=== PATIENT | female | born 1935 | race Caucasian/White ===

== ENCOUNTER 2024-12-21 09:34 | Emergency (ER) | payer MEDICAID, OTHER ==
[~2024-12-21] VITALS: Ht 157.5 cm; Wt 59.0 kg
[2024-12-21 09:34] VITALS: BP 153/63; PULSE 63; RESP 18; TEMP 97.9; O2SAT 95
--- NOTE | 2024-12-21 11:58 | DVH ---
CLINICAL INDICATION: 89 years old, Female; Fall. TECHNIQUE: Noncontrast CT of the facial bones was performed. Sagittal and coronal reformatted images are provided. COMPARISON: None CT Dose: CTDI volume is 66.97 mGy. Dose-length product is 1196.21 mGy*cm FINDINGS: Evaluation is limited by patient's position. No evidence of acute facial bone fracture. Paranasal si nuses and mastoid air cells are clear. The soft tissues are grossly unremarkable. IMPRESSION: 1. No evidence of acute facial bone fracture. All CT scans at this medical facility are performed using dose modulation techniques as appropriate t o a performed exam including the following: Automated exposure control was utilized; adjustment of th e MA and/or KV according to patient size; and use of iterative reconstruction technique.
--- NOTE | 2024-12-21 12:00 | DVH ---
EXAM: CT HEAD WITHOUT CONTRAST INDICATION: Fall TECHNIQUE: CT of the head without intravenous contrast. Coronal and sagittal reformatted images are s ubmitted. Radiation Dose : 1. Head: CT Dose: CTDI volume is 65.4 mGy. Dose-length product is 1156.4 mGy*cm The dose indicators for CT are the volume Computed Tomography (CT) Dose Index (CTDIvol) and the Dose Length Product (DLP), and are measured in units of mGy and mGy-cm, respectively. These indicators are not patient dose, but values generated from the CT scanner acquisition factors. The report includes radiation exposure data for exposures received during this examination. All CT scans at this medical facility are performed using dose modulation techniques as appropriate to a performed exam including the following: Automated exposure control was utilized; adjustment of the MA and/or KV according to patient size; and use of iterative reconstruction technique. COMPARISON: None FINDINGS: Evaluation is limited by patient position. There is no evidence of acute intracranial hemorrhage, extra-axial collection, mass effect, midline s hift, herniation or hydrocephalus. Age-appropriate cortical volume loss. There are periventricular and subcortical hypodensities, nonspecific, but likely reflecting sequelae of chronic microvascular ischemic changes. The ventricles, sulci and cisterns are age appropriate. The estrada-white differentiation is intact. The visualized paranasal sinuses and mastoid air cells are clear. No depressed calvarial fracture. Right vertex scalp swelling. Subacute right clavicular fracture. IMPRESSION: 1. No evidence of acute intracranial abnormality. 2. Right scalp swelling at the vertex. 3. Subacute right clavicular fracture.
--- NOTE | 2024-12-21 12:02 | DVH ---
EXAM: CT CERVICAL WITHOUT CONTRAST INDICATION: Fall EXAM DATE: 12/21/2024 11:17 AM COMPARISON: None TECHNIQUE: Multiple axial CT images of the cervical spine were obtained using bone algorithm. Sagitta l and coronal reformatting was done. Bone and soft tissue windows were reviewed. Radiation Dose Information: CT Dose: CTDI volume is 17.74 mGy. Dose-length product is 433.49 mGy*cm FINDINGS: Evaluation is limited by patient position. The cervical alignment is intact. Levocurvature of the cervical spine. No acute cervical spine fractu re is identified. The vertebral body heights are intact. No suspicious osseous lesions are identified . Multilevel degenerative changes. No significant spinal stenosis. Multilevel cervical spondylosis. Right clavicular subacute fracture. There is no prevertebral soft tissue swelling. Lung apices are clear. Right shoulder joint effusion. IMPRESSION: 1. No evidence of acute cervical spine fracture or traumatic malalignment. 2. Degenerative changes in the cervical spine. All CT scans at this medical facility are performed using dose modulation techniques as appropriate t o a performed exam including the following: Automated exposure control was utilized; adjustment of th e MA and/or KV according to patient size; and use of iterative reconstruction technique.
[2024-12-21 12:19] LABS: Basophils # (auto) 0.1 10 ^3/uL (0-0.2); Basophils % (auto) 0.8 % (0.0-2.0); Eosinophils # (auto) 0 10 ^3/uL (0-0.8); Eosinophils % (auto) 0.6 % (0.0-7.0); Hematocrit 32.9 % (36.0-46.0); Hemoglobin 10.9 g/dL (12.2-16.2); Lymphocytes # (auto) 1.1 10 ^3/uL (0.4-5.4); Lymphocytes % (auto) 15.4 % (10.0-50.0); Mean Corpuscular Hemoglobin 30.6 pg (28.0-32.0); Mean Corpuscular Hgb Conc. 33.3 g/dL (32.0-36.0); Mean Corpuscular Volume 91.9 fL (80.0-100.0); Monocytes # (auto) 0.5 10 ^3/uL (0-1.3); Neutrophils # (auto) 5.2 10 ^3/uL (1.6-8.6); Neutrophils % (auto) 76.2 % (37.0-80.0); Platelet Count (auto) 269 10^3/uL (140-450); Red Blood Cells 3.58 10^6/uL (4.0-5.20); Red Cell Distribution Width 14.7 % (11.8-14.3); White Blood Cell 6.9 10^3/uL (4.4-10.8)
[2024-12-21 12:30] LABS: Potassium 4.4 mmol/L (3.5-5.1)
[2024-12-21 12:31] LABS: Anion Gap 7 (5-15); Calcium 9.7 mg/dL (8.7-10.4); Carbon Dioxide 27 mmol/L (20-31)
[2024-12-21 12:36] LABS: BUN/Creatinine Ratio 29.1 (10.0-20.0)
[2024-12-21 12:41] LABS: Blood Urea Nitrogen 25 mg/dL (9-23); Chloride 96 mmol/L (98-107); Glucose 124 mg/dL (74-106); Sodium 130 mmol/L (136-145)
[2024-12-21 12:44] LABS: INR 0.98 (0.9-1.15); Prothrombin Time 10.4 sec (9.3-11.8)
--- NOTE | 2024-12-21 13:17 | ED.PDOC ---
HPI Comments 89-year-old who is in hospice and has a history of dementia, epilepsy, pacemaker, osteoarthritis BIB ambulance for a unwitnessed mechanical fall after loosing her footing going to the restroom and sustained a 3 cm laceration to the right temporal region. Denies fever, chills, night sweats Denies persistent nausea Denies vomiting Denies thunderclap headache Denies photophobia, phonophobia Denies taking any blood thinner medication Denies vision/hearing changes Chief Complaint: Laceration Time Seen by MD: 09:58 Primary Care Provider: UNKNOWN Reviewed Notes: Nurses Notes, Medications, Allergies Allergies: Coded Allergies: Codeine (Verified Allergy, Severe, 12/21/24) Zolpidem (Verified Allergy, Severe, 12/21/24) Uncoded Allergies: ELIQUIS (Allergy, Severe, 12/21/24) Mode of Arrival: EMS Complexity: Intermediate Laceration Length (cm): 2 All Other Systems: Reviewed and Negative (per hpi) Physical Exam General Appearance: No Apparent Distress, Normal HEENT: Head (3 cm lac to right temporal area), Normal ENT Inspection, Pharynx Normal, TMs Normal Neck: Full Range of Motion, Non-Tender, Normal, Normal Inspection Respiratory: Chest Non-Tender, Lungs Clear, No Accessory Muscle Use, No Respiratory Distress, Normal Breath Sounds Cardiovascular: No Edema, No JVD, No Murmur, No Gallop, Normal Peripheral Pulses, Regular Rate/Rhythm Breast Exam: Deferred Gastrointestinal: No Organomegaly, Non Tender, No Pulsatile Mass, Normal Bowel Sounds, Soft Genitalia: Deferred Pelvic: Deferred Rectal: Deferred Extremities: No calf tenderness, Normal capillary refill, Normal inspection, Normal range of motion, Non-tender, No pedal edema Musculoskeletal : Apperance: Normal Neurologic: Alert, marketing systems manager II-XII nml as Tested, No Motor Deficits, Normal Affect, Normal Mood, No Sensory Deficits Cerebellar Function: Normal Reflexes: Normal Skin: Dry, Normal Color, Warm Lymphatic: No Adenopathy Was a procedure done? Was a procedure done?: Yes Sedation Sedation?: No Laceration Repair : Location right voodoo Length 3 Laceration Repair Prep: Saline, Betadine Laceration Repair Wound Comple: epidermis/dermis repair Laceration Repair: [place] (2) Differential diagnosis Generic Laceration: Hematoma, Fracture Differential Diagnosis: Closed Head Injury, Skull Fracture X-Ray, Labs, Meds, VS Vital Signs Date Time Temp Pulse Resp B/P (MAP) Pulse Ox O2 Delivery O2 Flow Rate FiO2 12/21/24 09:57 Room Air* 0 21 12/21/24 09:34 63 18 12/21/24 09:34 97.9 63 18 153/63 (93) 95 12/21/24 09:34 97.9 63 18 153/63 (93) 95 97.9 Lab Test 12/21/24 11:35 Range/Units White Blood Count 6.9 4.4-10.8 10^3/uL Red Blood Count 3.58 L 4.0-5.20 10^6/uL Hemoglobin 10.9 L 12.2-16.2 g/dL Hematocrit 32.9 L 36.0-46.0 % Mean Corpuscular Volume 91.9 80.0-100.0 fL Mean Corpuscular Hemoglobin 30.6 28.0-32.0 pg Mean Corpuscular Hemoglobin Concent 33.3 32.0-36.0 g/dL Red Cell Distribution Width 14.7 H 11.8-14.3 % Platelet Count 269 140-450 10^3/uL Mean Platelet Volume 7.7 6.9-10.8 fL Neutrophils (%) (Auto) 76.2 37.0-80.0 % Lymphocytes (%) (Auto) 15.4 10.0-50.0 % Monocytes (%) (Auto) 7.0 0.0-12.0 % Eosinophils (%) (Auto) 0.6 0.0-7.0 % Basophils (%) (Auto) 0.8 0.0-2.0 % Neutrophils # (Auto) 5.2 1.6-8.6 10 ^3/uL Lymphocytes # (Auto) 1.1 0.4-5.4 10 ^3/uL Monocytes # (Auto) 0.5 0-1.3 10 ^3/uL Eosinophils # (Auto) 0 0-0.8 10 ^3/uL Basophils # (Auto) 0.1 0-0.2 10 ^3/uL Nucleated Red Blood Cells 0.0 % Prothrombin Time 10.4 9.3-11.8 sec Prothrombin Time INR 0.98 0.9-1.15 Sodium Level 130 L 136-145 mmol/L Potassium Level 4.4 3.5-5.1 mmol/L Chloride Level 96 L 98-107 mmol/L Carbon Dioxide Level 27 20-31 mmol/L Anion Gap 7 5-15 Blood Urea Nitrogen 25 H 9-23 mg/dL Creatinine 0.86 0.550-1.02 mg/dL Glomerular Filtration Rate Calc 65 >90 mL/min BUN/Creatinine Ratio 29.1 H 10.0-20.0 Serum Glucose 124 H 74-106 mg/dL Calcium Level 9.7 8.7-10.4 mg/dL PATIENT: MAK VAZQUEZT: [id number]: [id number] : 1935 LOC: ER ROOM / BED: / AGE / SEX: 89 / F ADM STATUS: REG ER SERVICE 1102 ORDERING PHYSICIAN: TONYA YAN NP PROCEDURE(s): HWOCT - HEAD WITHOUT CONTRAST REASON: Fall ORDER NUMBER(s): [id number], ACCESSION NUMBER(s): [id number] EXAM: CT HEAD WITHOUT CONTRAST INDICATION: Fall TECHNIQUE: CT of the head without intravenous contrast. Coronal and sagittal reformatted images are submitted. Radiation Dose : 1. Head: CT Dose: CTDI volume is 65.4 mGy. Dose-length product is 1156.4 mGy*cm The dose indicators for CT are the volume Computed Tomography (CT) Dose Index (C TDIvol) and the Dose Length Product (DLP), and are measured in units of mGy and mGy-cm, respectively. These indicators are not patient dose, but values generated from the CT scanner acquisition factors. The report includes radiation exposure data for exposures received during this examination. All CT scans at this medical facility are performed using dose modulation techniques as appropriate to a performed exam including the following: Automated exposure control was utilized; adjustment of the MA and/or KV according to patient size; and use of iterative reconstruction technique. COMPARISON: None FINDINGS: Evaluation is limited by patient position. There is no evidence of acute intracranial hemorrhage, extra-axial collection, mass effect, midline shift, herniation or hydrocephalus. Age-appropriate cortical volume loss. There are periventricular and subcortical hypodensities, nonspecific, but likely reflecting sequelae of chronic microvascular ischemic changes. The ventricles, sulci and cisterns are age appropriate. The estrada-white differentiation is intact. The visualized paranasal sinuses and mastoid air cells are clear. No depressed calvarial fracture. Right vertex scalp swelling. Subacute right clavicular fracture. IMPRESSION: 1. No evidence of acute intracranial abnormality. 2. Right scalp swelling at the vertex. 3. Subacute right clavicular fracture. ATED BY: RITA EATON MD DICTATED DATE/TIME: 12/21/241157 SIGNED BY: RITA EATON MD SIGNED DATE/TIME: 12/21/241157 CC: PATIENT: VIKY VAZQUEZ ACCT: [id number] UNIT: [id number] : 1935 LOC: ER ROOM / BED: / AGE / SEX: 89 / F ADM STATUS: REG ER SERVICE 01 ORDERING PHYSICIAN: TONYA YAN NP PROCEDURE(s): FAC2C - MAXILLOFACIAL WITHOUT REASON: Fall ORDER NUMBER(s): [id number], ACCESSION NUMBER(s): [id number] CLINICAL INDICATION: 89 years old, Female; Fall. TECHNIQUE: Noncontrast CT of the facial bones was performed. Sagittal and coronal reformatted images are provided. COMPARISON: None CT Dose: CTDI volume is 66.97 mGy. Dose-length product is 1196.21 mGy*cm FINDINGS: Evaluation is limited by patient's position. No evidence of acute facial bone fracture. Paranasal sinuses and mastoid air cells are clear. The soft tissues are grossly unremarkable. IMPRESSION: 1. No evidence of acute facial bone fracture. All CT scans at this medical facility are performed using dose modulation techniques as appropriate to a performed exam including the following: Automated exposure control was utilized; adjustment of the MA and/or KV according to rufina ent size; and use of iterative reconstruction technique. ATED BY: RITA EATON MD DICTATED DATE/TIME: 12/21/241154 SIGNED BY: RITA EATON MD SIGNED DATE/TIME: 12/21/241154 CC: PATIENT: VIKY VAZQUEZ ACCT: [id number] UNIT: [id number] : 1935 LOC: ER ROOM / BED: / AGE / SEX: 89 / F ADM STATUS: REG ER SERVICE 1102 ORDERING PHYSICIAN: TONYA YAN NP PROCEDURE(s): CS2 - CERVICAL WITHOUT CONTRAST REASON: Fall ORDER NUMBER(s): [id number], ACCESSION NUMBER(s): [id number] EXAM: CT CERVICAL WITHOUT CONTRAST INDICATION: Fall EXAM DATE: 12/21/2024 11:17 AM COMPARISON: None TECHNIQUE: Multiple axial CT images of the cervical spine were obtained using bone algorithm. Sagittal and coronal reformatting was done. Bone and soft tissue windows were reviewed. Radiation Dose Information: CT Dose: CTDI volume is 17.74 mGy. Dose-length product is 433.49 mGy*cm FINDINGS: Evaluation is limited by patient position. The cervical alignment is intact. Levocurvature of the cervical spine. No acute cervical spine fracture is identified. The vertebral body heights are intact. No suspicious osseous lesions are identified. Multilevel degenerative changes. No significant spinal stenosis. Multilevel cervical spondylosis. Right clavicular subacute fracture. There is no prevertebral soft tissue swelling. Lung apices are clear. Right shoulder joint effusion. IMPRESSION: 1. No evidence of acute cervical spine fracture or traumatic malalignment. 2. Degenerative changes in the cervical spine. All CT scans at this medical facility are performed using dose modulation techniques as appropriate to a performed exam including the following: Automated exposure control was utilized; adjustment of the MA and/or KV according to patient size; and use of iterative reconstruction technique. ATED BY: RITA EATON MD DICTATED DATE/TIME: 12/21/24 1200 SIGNED BY: RITA EATON MD SIGNED DATE/TIME: 12/21/24 1200 CC: X-Ray, Labs, Meds, VS Comment 89-year-old with complex MHx presents for a mechanical fall. Sustained laceration to the right temporal region. 2 mick Pt hospice. Was monitored an extensive amount of time. Patient was able to tolerate foods and p.o. challenge with no complications Laceration was repaired with two mick. Advised to return in two days for wound check. Return in seven days for staple removal On reevaluation, patient had symptomatic improvement. Patient is stable for discharge at this time. External notes reviewed. Test results and diagnostic imaging interpreted. All diagnostic findings, discharge care, education and instructions provided Follow-up with PCP in 2 to 3 days Patient verbalized understanding and agreed to treatment plan Vital signs stable, afebrile, no acute distress noted Patient ambulatory with strong steady gait Advised to return precautions for any new or worsening symptoms, return to ER immediately for re-evaluation Patient is aware that the purpose of this visit was for an acute medical emergency requiring emergent stabilization. Chronic conditions, including malignancies have not been ruled out. Patient is instructed to follow up with PCP as directed and discharge instructions for continued care and workup. If unable to arrange follow-up, patient is to return to the emergency department for reassessment. Patient (parent or legal guardian if applicable) was given verbal and written discharge instructions and acknowledges understanding. Time of 1ST Reevaluation: 13:11 Reevaluation 1ST: Improved Patient Education/Counseling: Diagnosis, Treatment Family Education/Counseling: Diagnosis, Treatment Departure 1 Departure Time of Disposition: 14:41 Impression: Primary Impression: Fall Qualified Codes: W19.XXXA - Unspecified fall, initial encounter Additional Impressions: Laceration Hyponatremia Disposition: 01 HOME / SELF CARE / HOMELESS Condition: Fair Critical Care Note Critical Care Time?: No Stability Stability form required: No Heart Score Heart Score: Heart Score Response (Comments) Value History N/A 0 EKG N/A 0 Age N/A 0 Risk Factors N/A 0 Troponin N/A 0 Total 0 TONYA YAN NP Dec 21, 2024 13:17
== END 2024-12-21 16:18 | disposition home or self-care (01) ==
LOC: ER 09:34 → EDBD 09:34 → ER 16:18
DX: S01.01XA Laceration without foreign body of scalp, initial encounter (principal); E87.1 Hypo-osmolality and hyponatremia; Z88.5 Allergy status to narcotic agent; Z95.0 Presence of cardiac pacemaker; W18.39XA Other fall on same level, initial encounter; Y93.89 Activity, other specified; Y92.89 Other specified places as the place of occurrence of the external cause; Y99.8 Other external cause status
CPT/HCPCS: 12002; 36415; 70450; 70486; 72125; 80048; 85025; 85610